=== PATIENT | male | born 2000 | race Hispanic/Latino ===

== ENCOUNTER 2021-03-15 02:04 | Emergency (ER) | payer OTHER ==
[2021-03-15] MEDS ORDERED: Ondansetron PF 4 MG/2 ML Vial ONE (02:22)
== END 2021-03-15 02:56 | disposition home or self-care (01) ==
LOC: ERS 02:04
DX: F10.129 Alcohol abuse with intoxication, unspecified (principal); F17.290 Nicotine dependence, other tobacco product, uncomplicated
CPT/HCPCS: 96374; J2405